=== PATIENT | female | born 1985 | race Caucasian/White ===

== ENCOUNTER → 2017-10-23 | Outpatient (CLI) | payer OTHER | END | disposition home or self-care (01) | LOC: CFH 15:16 | PROVIDERS: ATTEND Nurse Practitioner Family | DX: M54.5 Low back pain (principal); M62.830 Muscle spasm of back | CPT/HCPCS: 72114 ==

== ENCOUNTER → 2020-04-26 | Outpatient (CLI) | payer OTHER | END | disposition home or self-care (01) | LOC: RAD 09:09 | PROVIDERS: ATTEND Internal Medicine Gastroenterology | DX: Z11.59 Encounter for screening for other viral diseases (principal); R94.5 Abnormal results of liver function studies | CPT/HCPCS: 76700 ==

== ENCOUNTER 2020-06-24 13:28 | Emergency (ER) | payer OTHER ==
[~2020-06-24] VITALS: Ht 162.6 cm; Wt 91.0 kg
[2020-06-24] MEDS ORDERED: NORE1TAB27 PO (14:07)
[2020-06-24] MEDS ORDERED: RIZA10TA5 PO (14:08)
--- NOTE | 2020-06-24 14:09 | NUR ---
THE PT IS A 35F EDWARDO HAS HAD A HEADACHE AND SOB SINCE THIS MORNING. PT ALSO REPORTS FEELING FAINT AND DIZZY ON SUNDAY. HOME BP MACHINE SHOWS ELEVATED BP OF 140/100. HER PCP REFERRED HER TO THE ER FOR A WORKUP. ED PROVIDER AT BEDSIDE FOR EVAL AND POC. BP, SP02 MONITORS IN PLACE. CALL LIGHT WITHIN REACH.
--- NOTE | 2020-06-24 14:15 | NUR ---
PT IS RESTING COMFORTABLY WITH WARM BLANKET PROVIDED. SHE IS SPEAKING IN FULL SENTENCES.
[2020-06-24 14:32] LABS: BASOPHILS % (AUTO) 2 % (0-1); EOSINOPHILS % (AUTO) 3 % (1-7); LYMPHOCYTES % (AUTO) 26 % (22-44); MEAN CORPUSCULAR HGB CONC 34.3 g/dL (32.4-35.8); MEAN PLATELET VOLUME 8.9 fL (7.4-10.4); MONOCYTES % (AUTO) 5 % (2-9); NEUTROPHILS % (AUTO) 64 % (42-75); PLATELET COUNT 249 x10^3/uL (130-400); RED CELL DISTRIBUTION WIDTH 13.4 % (9.6-15.2)
[2020-06-24 14:34] LABS: MD NO
[2020-06-24 14:40] LABS: ALBUMIN 3.7 g/dL (3.4-5.0); ANION GAP 4 mmol/L (5-15); CALCIUM 9.6 mg/dL (8.5-10.1); CHLORIDE 107 mmol/L (98-107); CREATININE 0.76 mg/dL (0.55-1.02)
[2020-06-24 14:44] LABS: TROPONIN I < 0.015 ng/mL (0.000-0.045)
--- NOTE | 2020-06-24 16:28 | NUR ---
PT COMPLAINING OF HEADACHE. WILL MEDICATE PER ORDERS. ALL MONITORS IN PLACE AND CALL LIGHT WITHIN REACH.
[2020-06-24] MEDS ORDERED: ACETAMINOPHEN 500 MG TABLET ONE (16:30)
[2020-06-24] MEDS ORDERED: ACETAMINOPHEN 500 MG TABLET PO ONE (16:30)
[2020-06-24 16:47] VITALS: BP 132/88
--- NOTE | 2020-06-24 16:48 | NUR ---
Patient/Caregiver given discharge instructions and they have confirmed that they understand the instructions. Patient ambulatory with steady gait.
== END 2020-06-24 17:02 | disposition home or self-care (01) ==
LOC: ED 14:05
DX: I10 Essential (primary) hypertension (principal); R42 Dizziness and giddiness
CPT/HCPCS: 36415; 80048; 82040; 83880; 84484; 85025; 93005; 99285